=== PATIENT | male | born 1975 | race African-American/Black ===

== ENCOUNTER 2022-10-28 04:16 | Day surgery (SDC) | payer OTHER ==
[2022-10-26 14:04] VITALS: BMI 29.5
[2022-10-28] MEDS ORDERED: PROPOFOL 40 ML ONE (09:32)
[2022-10-28] MEDS ORDERED: DEXAMETHASONE SOD PHOSPHATE 10 MG/1 ML VIAL ONE (10:10)
[2022-10-28] MEDS ORDERED: ROPIVACAINE HCL 0.5% 30ML VIAL ONE (10:10)
[2022-10-28] MEDS ORDERED: ONDANSETRON 4 MG/2 ML VIAL IVPUSH PRN (10:17)
[2022-10-28] MEDS ORDERED: oxyCODONE HCL 5 MG TABLET PO PRN (10:17)
[2022-10-28] MEDS ORDERED: MIDAZOLAM HCL 2 MG/2 ML SINGLE DOSE VIAL ONE (10:24)
[2022-10-28] MEDS ORDERED: LACTATED RINGERS SOLUTION 1,000 ML IV SCH (10:30)
[2022-10-28] MEDS ORDERED: ONDANSETRON 4 MG/2 ML VIAL ONE (10:52)
[2022-10-28] MEDS ORDERED: ceFAZolin SODIUM 1 GM VIAL ONE (10:52)
[2022-10-28] MEDS ORDERED: DEXAMETHASONE SOD PHOSPHATE 4 MG/1 ML VIAL ONE (10:52)
[2022-10-28] MEDS ORDERED: METOPROLOL TARTRATE 5 MG/5 ML VIAL ONE (11:00)
[2022-10-28] MEDS ORDERED: ceFAZolin SODIUM 1 GM VIAL IVPB ONE (11:00)
[2022-10-28 14:02] VITALS: RESP 20; TEMP 97.2
[2022-10-28 14:04] VITALS: BP 125/84; PULSE 78
== END 2022-10-28 13:05 | disposition home or self-care (01) ==
LOC: JASU-SURG 04:16
PROVIDERS: ATTEND Orthopaedic Surgery
PROC: 0RNK4ZZ Release Left Shoulder Joint, Percutaneous Endoscopic Approach (ICD-10-PCS; principal; 2022-10-28 09:30)
DX: M75.122 Complete rotator cuff tear or rupture of left shoulder, not specified as traumatic (principal); X58.XXXA Exposure to other specified factors, initial encounter; Y92.9 Unspecified place or not applicable; Y93.9 Activity, unspecified
CPT/HCPCS: 29826; 29827; C1713; 82962; 94760; J1100